=== PATIENT | female | born 1950 | race Caucasian/White ===

== ENCOUNTER 2019-09-13 16:16 | Emergency (ER) | payer MEDICARE, MEDICAID ==
[~2019-09-13] VITALS: Ht 165.1 cm; Wt 67.8 kg
--- NOTE | 2019-09-13 17:06 | NUR ---
PT AMBULATED STEADILY TO ROOM FROM LOBBY WITH RN AND FRIEND. PT REPORTS BLADDER DISTENTION/PAINFUL URINATION X TWO DAYS. DENIES N/V/FEVER/FLANK PAIN/VAGINAL DC OR BLEEDING. LBM TODAY, "NORMAL" PER PT. HX OF COMPLETE HYST/APPY. UA COLLECTED AND SENT TO LAB.
[2019-09-13] MEDS ORDERED: ONDANSETRON 2MG/ML, 2ML ONE (17:25)
[2019-09-13 17:26] LABS: MICROSCOPIC AUTO
[2019-09-13] MEDS ORDERED: MORPHINE SULFATE 4 MG/ML, 1ML ONE (17:26)
[2019-09-13 17:27] LABS: CULTURE INDICATED? YES
[2019-09-13] MEDS ORDERED: MORPHINE SULFATE 4 MG/ML, 1ML IVPush PRN (17:30)
[2019-09-13] MEDS ORDERED: SODIUM CHLORIDE FLUSH 10ML SYR IVF ONE (17:30)
[2019-09-13] MEDS ORDERED: ONDANSETRON 2MG/ML, 2ML IVPush ONE (17:30)
[2019-09-13 17:35] LABS: BASOPHILS # (AUTO) 0.07 x10^3/uL (0-0.1); BASOPHILS % (AUTO) 1 % (0-1); EOSINOPHILS # (AUTO) 0.11 x10^3/uL (0-0.4); EOSINOPHILS % (AUTO) 1 % (1-7); LYMPHOCYTES # (AUTO) 2.39 x10^3/uL (1-3.4); LYMPHOCYTES % (AUTO) 26 % (22-44); MD NO; MEAN CORPUSCULAR HEMOGLOBIN 30.8 pg (27.0-34.8); MEAN CORPUSCULAR HGB CONC 33.8 g/dL (32.4-35.8); MEAN CORPUSCULAR VOLUME 91.2 fL (80-100); MEAN PLATELET VOLUME 8.2 fL (7.4-10.4); MONOCYTES # (AUTO) 0.76 x10^3/uL (0.2-0.8); MONOCYTES % (AUTO) 8 % (2-9); NEUTROPHILS # (AUTO) 5.86 x10^3/uL (1.8-6.8); NEUTROPHILS % (AUTO) 64 % (42-75); PLATELET COUNT 332 x10^3/uL (130-400); RED BLOOD COUNT 5.25 x10^6/uL (3.82-5.3)
--- NOTE | 2019-09-13 17:40 | NUR ---
PATIENT MEDICATED PER EMAR, TOLERATED WELL, RESPIRATIONS EVEN AND UNLABORED, CYCLED VITAL SIGNS, VSS. FAMILY AT BEDSIDE, PLACED ON CONTIUOUS SPO2 AT 95%, CYCLE BP Q1HR. CALL LIGHT IN REACH.
[2019-09-13 17:48] LABS: ALANINE AMINOTRANSFERASE 31 U/L (12-78); ALBUMIN 3.6 g/dL (3.4-5.0); ANION GAP 8 mmol/L (5-15); CALCIUM 8.8 mg/dL (8.5-10.1); CHLORIDE 110 mmol/L (98-107); CREATININE 0.67 mg/dL (0.55-1.02)
[2019-09-13 17:50] LABS: ALKALINE PHOSPHATASE 126 U/L (45-117); BILIRUBIN,TOTAL 0.3 mg/dL (0.2-1.0); TOTAL PROTEIN 7.2 g/dL (6.4-8.2)
--- NOTE | 2019-09-13 17:50 | NUR ---
PATIENT SATTING AT 95% ON RA, PLACED ON 2L NC BEFORE GOING TO CT TO PREVENT DESAT AFTER MEDICATION.
[2019-09-13] MEDS ORDERED: CEFTRIAXONE PMX 1GM/50ML 50 ML ONE (17:57)
--- NOTE | 2019-09-13 17:59 | NUR ---
CONSULTED WITH ON IF BLOOD CULTURES NEED TO BE DRAWN, MD DECIDED NOT TO DRAW CULTURES.
[2019-09-13] MEDS ORDERED: CEFTRIAXONE PMX 1GM/50ML 50 ML IV ONE (18:00)
[2019-09-13] MEDS ORDERED: OMNIPAQUE 350 MG/ML, 100ML BOTTLE ONE (18:16)
--- NOTE | 2019-09-13 19:21 | NUR ---
PT AMBULATORY TO RESTROOM. STEADY GAIT NOTED. CHART UP FOR RECHECK. BACK TO BED WITHOUT DIFFICULTY.
[2019-09-13 19:22] VITALS: BP 121/59
--- NOTE | 2019-09-13 20:16 | NUR ---
Patient/Caregiver given discharge instructions and they have confirmed that they understand the instructions. Patient ambulatory with steady gait.
== END 2019-09-13 20:18 | disposition home or self-care (01) ==
LOC: ED 19:42
DX: N30.00 Acute cystitis without hematuria (principal); Z90.49 Acquired absence of other specified parts of digestive tract; Z90.710 Acquired absence of both cervix and uterus
CPT/HCPCS: 36415; 74177; 80053; 81001; 83605; 83690; 84145; 85025; 87077; 87086; 96365; 96375; 99284; J0696; J2270; J2405; Q9967; 87186

== ENCOUNTER 2020-06-11 08:33 | Emergency (ER) | payer MEDICARE, MEDICAID ==
[~2020-06-11] VITALS: Ht 162.6 cm; Wt 70.2 kg
--- NOTE | 2020-06-11 09:06 | NUR ---
BUTT MAKER: PT TO ROOM AT THIS TIME VIA WHEELCHAIR. RUSS
[2020-06-11 10:02] LABS: BASOPHILS # (AUTO) 0.04 x10^3/uL (0-0.1); BASOPHILS % (AUTO) 1 % (0-1); EOSINOPHILS # (AUTO) 0.32 x10^3/uL (0-0.4); EOSINOPHILS % (AUTO) 4 % (1-7); LYMPHOCYTES % (AUTO) 25 % (22-44); MD NO; MEAN CORPUSCULAR HEMOGLOBIN 31.2 pg (27.0-34.8); MEAN CORPUSCULAR HGB CONC 34.3 g/dL (32.4-35.8); MEAN PLATELET VOLUME 8.3 fL (7.4-10.4); MONOCYTES # (AUTO) 0.56 x10^3/uL (0.2-0.8); MONOCYTES % (AUTO) 7 % (2-9); NEUTROPHILS # (AUTO) 4.98 x10^3/uL (1.8-6.8); NEUTROPHILS % (AUTO) 63 % (42-75); PLATELET COUNT 315 x10^3/uL (130-400); RED CELL DISTRIBUTION WIDTH 13.7 % (9.6-15.2)
[2020-06-11 10:06] LABS: CLUE CELLS NONE SEEN (NONE SEEN); WET PREP WBCS MANY (FEW)
[2020-06-11 10:10] LABS: ALANINE AMINOTRANSFERASE 27 U/L (12-78); ALBUMIN 3.6 g/dL (3.4-5.0); ANION GAP 7 mmol/L (5-15); CALCIUM 8.5 mg/dL (8.5-10.1); CHLORIDE 110 mmol/L (98-107); CREATININE 1.15 mg/dL (0.55-1.02)
[2020-06-11 10:13] LABS: ALKALINE PHOSPHATASE 121 U/L (45-117); BILIRUBIN,TOTAL 0.4 mg/dL (0.2-1.0)
--- NOTE | 2020-06-11 10:13 | NUR ---
PT PRESENTS TO ED WITH C/O LOWER BACK PAIN X 4 WEEKS, VAG DISCHARGE AND ODOR X SEVERAL DAYS. PT HAS HX FREQUENT UTI. PT SEEN AND EXAMINED BY EDPA WHO ORDERED STRAIGHT CATH. STRAIGHT CATH UA OBTAINED AND WALKED TO LAB. PT AWAITING LAB AND UA RESULTS. PT A&O, RESPS EVEN AND UNLABORED, NADN. CALL LIGHT IN REACH.
[2020-06-11 10:24] LABS: MICROSCOPIC NOT IND
--- NOTE | 2020-06-11 10:31 | NUR ---
HELENE KRUEGER NOTIFIED PT IS POSITIVE FOR TRICHOMONAS BY WET PREP.
[2020-06-11 11:30] VITALS: BP 151/62
== END 2020-06-11 11:48 | disposition home or self-care (01) ==
LOC: ED 10:14
DX: A59.01 Trichomonal vulvovaginitis (principal); M54.5 Low back pain; Z90.89 Acquired absence of other organs; Z90.49 Acquired absence of other specified parts of digestive tract; Z90.710 Acquired absence of both cervix and uterus; F17.200 Nicotine dependence, unspecified, uncomplicated
CPT/HCPCS: 36415; 80053; 81003; 85025; 87210; 87808; 99283

== ENCOUNTER 2020-11-25 15:50 | Emergency (ER) | payer MEDICARE, MEDICAID ==
[~2020-11-25] VITALS: Ht 162.6 cm; Wt 69.6 kg
[2020-11-25 15:58] VITALS: BP 145/66
--- NOTE | 2020-11-25 17:52 | NUR ---
Pt A&Ox4. Pt requesting to go home to "take care of dog." Denies resp involvement, or trouble swallowing. "I just want to make sure it's not cancer."
== END 2020-11-25 18:04 | disposition left against medical advice (07) ==
LOC: ED 17:12
DX: R09.89 Other specified symptoms and signs involving the circulatory and respiratory systems (principal)
CPT/HCPCS: 99281